=== PATIENT | female | born 1960 | race Hispanic/Latino ===

== ENCOUNTER 2016-11-12 10:28 | Outpatient (CLI) | payer BC ==
[2016-11-12 11:04] LABS: Blood Urea Nitrogen 10 mg/dL (7-17)
[2016-11-12] MEDS ORDERED: NACL ONE ×2 (11:14→12:48)
--- NOTE | 2016-11-13 10:45 | Cat Scan Report ---
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 TECHNIQUE: Helical CT imaging with 1.25mm reconstructions following IV contrast. Sagittal and Coronal 2D reformatted images. 3 dimensional volume rendering technique. Stenosis was measured using NASCET criteria. COMPARISON: None at this facility. FINDINGS: ABDOMINAL AORTA: The abdominal aorta is normal caliber with a few tiny calcifications distally. No evidence for aneurysm or dissection. There is less than 20% stenosis. The celiac axis, SMA, HEMALATHA and bilateral single renal arteries are widely patent with less than 20% stenosis. ILIAC ARTERIES: Bilateral common iliac stents are in place which are widely patent. The internal and external iliac arteries are widely patent bilaterally with less than 20% stenosis. RIGHT LOWER EXTREMITY: The femoral and popliteal arteries are widely patent with less than 20% stenosis. The arterial structures distal to the knee are patent to the ankle with no significant atherosclerotic disease identified. LEFT LOWER EXTREMITY: The femoral and popliteal arteries are widely patent with less than 20% stenosis. The arterial structures distal to the knee are patent to the ankle with no significant atherosclerotic disease identified. Impression: No hemodynamically significant stenosis is detected. There are bilateral common iliac stents in place which are widely patent. Essentially normal exam otherwise.
== END 2016-11-12 10:29 | disposition home or self-care (01) ==
LOC: CT 10:28
PROVIDERS: ATTEND Surgery Vascular Surgery
DX: I70.293 Other atherosclerosis of native arteries of extremities, bilateral legs (principal); Z87.891 Personal history of nicotine dependence
CPT/HCPCS: 36415; 75635; 82565; 84520; Q9967

== ENCOUNTER 2018-12-01 11:34 | Outpatient (CLI) | payer OTHER | END 2018-12-01 11:35 | disposition home or self-care (01) | LOC: PF 11:34 | PROVIDERS: ATTEND Internal Medicine | DX: J45.909 Unspecified asthma, uncomplicated (principal); R06.02 Shortness of breath; I10 Essential (primary) hypertension | CPT/HCPCS: 94010 ==